=== PATIENT | male | born 1970 | race Caucasian/White ===

== ENCOUNTER 2018-05-21 08:13 | Emergency (ER) | payer OTHER ==
--- NOTE | 2018-05-21 08:29 | ED.PDOC ---
History of Present Illness - General Chief Complaint: Problem Stated Complaint: L flank discomfort, dark urine Time Seen by Provider: 05/21/18 08:20 Source: patient Exam Limitations: no limitations - History of Present Illness Initial Comments: Roger Tang 48 y/o male came to ER with sharp left flank pain 5 hours ago intermittent radiating to let testicle.Had also dark colored urine .No n/v,no fever ,no chills no diarrhea/constipation.Had passed out kidney stone spontaneously 8 years ago. Timing/Duration: just prior to arrival Quality: intermittent, sharpness Onset Location: left flank Radiation: scrotal Activites at Onset: none Prior abdominal problems: none Sexual intercourse history: single partner Improving Factors: nothing, eating Associated Symptoms: denies symptoms Allergies/Adverse Reactions: Allergies NO KNOWN ALLERGY Allergy (Verified 05/21/18 08:23) Home Medications: Ambulatory Orders Acetamin W/Cod #3 Tab [Tylenol w/CODEINE #3] 1 ea PO Q4HR PRN #20 tab 05/21/18 Ketorolac Tromethamine [Toradol Tabs] 10 mg PO TID #14 tab 05/21/18 Olopatadine HCl 1 drop BOTH_EYES DAILY PRN 05/21/18 Tamsulosin HCl [Flomax] 0.4 mg PO DAILY #7 cap 05/21/18 Review of Systems - Review of Systems Constitutional: States: no symptoms reported Respiratory: States: no symptoms reported Cardiology: States: no symptoms reported Gastrointestinal/Abdominal: States: see HPI Genitourinary: States: see HPI Skin: States: no symptoms reported Neurological: States: no symptoms reported Past Medical History (General) - Patient Medical History Hx Other PMH: Yes - kidney stones Surgical History: other - orthopedic procedures Family Medical History - Family History Mother Family History: No Known Father Family History: No Known Living Status: Still Living Physical Exam - Physical Exam General Appearance: Alert, Comfortable, No apparent distress Eyes, Ears, Nose, Throat Exam: normal ENT inspection Neck: non-tender, supple, normal inspection Cardiovascular/Respiratory: regular rate, rhythm, no M/R/G, normal peripheral pulses Gastrointestinal/Abdominal: normal bowel sounds, soft, no organomegaly Male Genital Exam: no hernia Back Exam: normal inspection, no CVA tenderness, no vertebral tenderness Extremity: no pedal edema, no calf tenderness Neurologic: alert, oriented x 3 Skin Exam: normal color, warm/dry Progress - Progress Progress: 05/21/18 10:03 05/21/18 08:33 IV Care:Saline Lock per Protoc QSHIFT URINALYSIS Stat Laboratory Results - last 24 hr 05/21/18 08:50 WBC 7.7 RBC 5.84 Hgb 15.6 Hct 46.7 MCV 80.0 MCH 26.7 L MCHC 33.4 RDW 14.4 Plt Count 195 MPV 8.5 Absolute Neuts (auto) 6.20 Absolute Lymphs (auto) 1.00 Absolute Monos (auto) 0.40 Absolute Eos (auto) 0.00 Absolute Basos (auto) 0.00 Neutrophils % 81.0 H Lymphocytes % 12.6 L Monocytes % 5.5 Eosinophils % 0.6 L Basophils % 0.3 PT 10.2 INR 1.02 PTT (SP) 27.1 Sodium 140 Potassium 4.6 Chloride 106 Carbon Dioxide 26 Anion Gap 12.6 BUN 17 Creatinine 0.82 BUN/Creatinine Ratio 20.7 H Random Glucose 129 H Serum Osmolality 282.6 Calcium 9.5 Magnesium 2.1 Total Bilirubin 0.6 Direct Bilirubin < 0.1 Indirect Bilirubin 0.5 AST 26 ALT 39 Alkaline Phosphatase 99 Creatine Kinase 205 H* CK-MB (CK-2) 2.4 CK-MB (CK-2) % Not Reportable Troponin I < 0.02 Serum Total Protein 8.0 Albumin 4.4 - Results/Orders Results/Orders: Vital Signs - 8 hr 05/21/18 05/21/18 08:23 09:32 Temperature 98.6 F Pulse Rate [ 78 67 Right Radial] Respiratory 20 20 Rate Blood Pressure 158/109 134/90 [Right Arm] O2 Sat by Pulse 96 92 L Oximetry - EKG/XRAY/CT CT Ordered: Yes - 9 mm calculus ureteropelvic junction left Departure - Departure Clinical Impression: Calculus in pelviureteric junction, Acute left flank pain Time of Disposition: 10:06 Disposition: Discharge to Home or Self Care Condition: Fair Departure Forms: ED Discharge - Pt. Copy, Patient Portal Self Enrollment Instructions: DI for Kidney Stones Diet: other - Drink extra fluids Referrals: Yee Croft NP [Primary Care Provider] - 1-2 Weeks Prescriptions: Acetamin W/Cod #3 Tab [Tylenol w/CODEINE #3] 1 ea PO Q4HR PRN #20 tab PRN Reason: Pain Ketorolac Tromethamine [Toradol Tabs] 10 mg PO TID #14 tab Tamsulosin HCl [Flomax] 0.4 mg PO DAILY #7 cap Home Medications: Ambulatory Orders Acetamin W/Cod #3 Tab [Tylenol w/CODEINE #3] 1 ea PO Q4HR PRN #20 tab 05/21/18 Ketorolac Tromethamine [Toradol Tabs] 10 mg PO TID #14 tab 05/21/18 Olopatadine HCl 1 drop BOTH_EYES DAILY PRN 05/21/18 Tamsulosin HCl [Flomax] 0.4 mg PO DAILY #7 cap 05/21/18 Additional Instructions: Strain urine;Return to ER as needed;follow up with primary Md 24 May 2018
[2018-05-21] MEDS ORDERED: LACTATED RINGERS 1,000 ML IVS ONE (08:33)
[2018-05-21] MEDS ORDERED: TAMSULOSIN 0.4 MG CAP PO ONE (08:33)
[2018-05-21] MEDS ORDERED: KETOROLAC TROMETHAMINE INJ 30 MG/ML VIAL IV ONE (08:33)
--- NOTE | 2018-05-21 09:51 | CT ---
PROCEDURE: Abdoment/Pelvis w/o Contrast HISTORY: left flank pain/dark urine Indication: Same as above Comparison: 09/18/2011 Technique: CT of the abdomen and pelvis was done without intravenous contrast. Images were obtained from the lung base to the level of the pubic symphysis in axial plane, followed by orthogonal sagittal and coronal reconstruction. Oral contrast was not given for the study. This exam was performed according to our departmental dose-optimization program, which includes automated exposure control, adjustment of the mA and/or KV according to the patient's size and/or use of iterative reconstruction technique. FINDINGS: Images through the lung bases do not show any focal infiltrates or pleural effusions. There is presence of tiny intraluminal gallstone. There is presence of multiple subcentimeter nonobstructive bilateral renal calculi. There is left-sided hydronephrosis to the level of the 9 mm calculus seen in the proximal left ureter at the ureteropelvic junction. There is no right-sided hydroureteronephrosis The liver, pancreas, spleen and the bilateral adrenal glands appear unremarkable, given the limitation of lack of intravenous contrast. The urinary bladder is unremarkable, without any evidence of wall thickening, calculi or filling defects. The small bowel appears unremarkable, without any evidence of small bowel obstruction or bowel wall thickening. There is no CT evidence of acute appendicitis, pericecal inflammatory change or ileocecal mesenteric adenitis. The ileocecal junction appears unremarkable. There is no CT evidence of acute colonic diverticulitis or colitis or large bowel obstruction. There is no pathological lymphadenopathy in the retroperitoneum or in the pelvic region. There is no evidence of free fluid or free air in the abdomen or the pelvic region. There is no clinically significant abdominal aortic aneurysm. There is presence of small fat-containing bilateral inguinal hernias. There is presence of a tiny fat-containing periumbilical ventral hernia The visualized lumbar spine is unremarkable. The paravertebral soft tissues are unremarkable. The remainder of the pelvic structures are unremarkable. IMPRESSION: There is presence of tiny intraluminal gallstone. There is presence of multiple subcentimeter nonobstructive bilateral renal calculi. There is left-sided hydronephrosis to the level of the 9 mm calculus seen in the proximal left ureter at the ureteropelvic junction Electronically signed by: Emery Moreno MD 05/21/2018 9:49 AM [facility] Workstation: [employer]
[2018-05-21] MEDS ORDERED: MORPHINE SULFATE INJ 10 MG/ML VIAL IV ONE (10:05)
[2018-05-21 10:20] VITALS: BP 108/85; TEMP 98; O2SAT 94
== END 2018-05-21 10:23 | disposition home or self-care (01) ==
LOC: ER 08:13
DX: N13.2 Hydronephrosis with renal and ureteral calculous obstruction (principal); K80.20 Calculus of gallbladder without cholecystitis without obstruction; Z87.442 Personal history of urinary calculi
CPT/HCPCS: 36415; 74176; 80048; 80076; 82550; 82553; 84484; 85025; 85610; 85730; J1885; J2270; J7120